=== PATIENT | male | born 1955 | race African-American/Black ===

== ENCOUNTER 2021-10-25 02:21 | Emergency (ER) | payer MEDICARE, OTHER ==
[~2021-10-25] VITALS: Ht 185.4 cm; Wt 113.4 kg
[2021-10-25 02:21] VITALS: BP 132/78
== END 2021-10-25 05:13 | disposition left against medical advice (07) ==
LOC: ER 02:21
DX: M25.571 Pain in right ankle and joints of right foot (principal); R05.9 Cough, unspecified; Z53.21 Procedure and treatment not carried out due to patient leaving prior to being seen by health care provider
CPT/HCPCS: 71045; 73610; 73630